=== PATIENT | female | born 2000 | race Two or more races ===

== ENCOUNTER 2025-01-23 18:26 | Emergency (ER) | payer MEDICAID, SELFPAY ==
[2025-01-23 18:52] VITALS: BMI 18.1
[2025-01-23 18:55] VITALS: BP 103/69; PULSE 79; RESP 17; TEMP 36.6; O2SAT 97
--- NOTE | 2025-01-23 19:03 | XR_ITS ---
Examination: CT brain head without contrast. 2-D sagittal coronal reconstructions Date and time of exam:January 23, 2025 1929 hours INDICATIONS: Syncopal episode today, patient fell today with images of the head, head pain CTDI: vol (mGy):29 DLP: (mGycm):549 Technique: Multiple CT axial sections of the brain have been obtained, 5 mm slice thickness. Contrast has not been administered. 2-D sagittal, coronal reconstructions have been obtained Low dose protocols were performed. One or more of the following dose reduction techniques were used; automated exposure control, adjustment of the mA and/or KV according to patient size, use of iterative reconstruction technique. Findings: No significant ventricular enlargement. Intra-axial or extra-axial hemorrhage density is not seen. No mass effect or midline shift Basal cisterns are not remarkable. Fourth ventricle is midline. Cranial vault intact. Impression: Negative for acute hemorrhage, mass effect or midline shift Please see the CT maxillofacial report
--- NOTE | 2025-01-23 19:03 | XR_ITS ---
Examination: PA lateral chest 2 views TECHNIQUE: Upright PA lateral chest 2 views Date and time: January 23, 2025 1917 hours INDICATION: Chest pain. Today FINDINGS: Normal heart size Lungs are clear. Moderate thoracic dextroscoliosis IMPRESSION: No active disease
--- NOTE | 2025-01-23 19:03 | EKG_ITS ---
[facility] Test Date: 2025-01-23 Pat Name: MIGNON OLMEDO Department: Room: - Gender: Female Under Trimmer: : 2000 Requested By: Saurabh Martinez Order Number: [id number] Reading MD: Saurabh Martinez Measurements Intervals [place] Rate: 70 P: 38 MT: 135 QRS: 68 QRSD: 84 T: 58 QT: 357 QTc: 386 Interpretive Statements SINUS RHYTHM POSSIBLE RIGHT VENTRICULAR CONDUCTION DELAY [RSR (QR) IN V1/V2] No previous ECG available for comparison /[id number]/[email or web address]/[id number]
--- NOTE | 2025-01-23 19:07 | XR_ITS ---
Examination: Transvaginal ultrasound of the pelvis, complete Technique: Transvaginal sonographic images pelvis performed using banks scale imaging Exam date and time: January 23, 2025 1039 hours INDICATIONS: Pelvic pain beginning several months ago FINDINGS: Uterus 5.3 cm endometrial stripe 1.0 cm No uterine mass or intrauterine gestation Right ovary 3.0 similar to flow Left ovary 2.8 cm arterial flow, fluid present in the left adnexal region and cul-de-sac. IMPRESSION: Mild fluid present in the left adnexal region and cul-de-sac, consider recent rupture of a left ovarian cyst, pelvic inflammatory disease, clinical correlation is advised
--- NOTE | 2025-01-23 19:07 | PD.EDSYNC ---
ED Syncope RME/HPI General Chief Complaint: Syncope / Near Syncope Stated Complaint: Syncope yesterday, hit nose, cough Time Seen by Provider: 01/23/25 19:03 Arrival date/time: 01/23/25 18:26 24F with no significant PMH presents to ED with syncope after some sharp pelvic pain. Patient fell and hit her nose. Patient also has a cough and was diagnosed with strep and is on penicillin. Patient has never had a work-up for her syncope, but she's fainted about 5 times in her life. It's usually associated with her pelvic pain. Last time this happened, she was told it was due to a ruptured pelvic cyst. Limitations: no limitations Related Data Previous Rx's ?Medication ?Instructions ?Recorded sulfamethoxazole 400 1 tab PO BID #36 tabs 06/22/20 mg-trimethoprim 80 mg tablet Allergies Allergy/AdvReac Type Severity Reaction Status Date / Time No Known Allergies Allergy Verified 01/23/25 18:32 Review of Systems Review of Systems Systems Reviewed: All systems reviewed, normal except as documented Constitutional Constitutional: Reports system reviewed and no additional complaints, except as documented, Denies fever(s) and Denies headache(s) ENT Ears, Nose, Mouth, and Throat: Reports as per HPI, Denies disequilibrium, Denies headache(s) and Reports other (nose pain) Cardiovascular Cardiovascular: Reports system reviewed and no additional complaints, except as documented, Denies chest pain, Denies dyspnea and Reports syncope Respiratory Respiratory: Reports system reviewed and no additional complaints, except as documented, Reports as per HPI, Reports cough and Denies dyspnea Gastrointestinal Gastrointestinal: Reports system reviewed and no additional complaints, except as documented, Denies abdominal pain, Denies nausea and Denies vomiting Neurologic Neurologic: Reports system reviewed and no additional complaints, except as documented, Reports as per HPI, Denies confusion, Denies disequilibrium, Denies headache(s) and Reports syncope Psychiatric Psychiatric: Denies confusion Past Medical History Past Medical History CARDIAC: Negative Cardiac Disorders or Congestive Heart Failure RESPIRATORY: Negative Chronic Obstructive Pulmonary Disease (COPD) or Asthma GENITOURINARY: Negative Renal Disease ENDOCRINE: Negative Diabetes Mellitus Type 1 or Diabetes Mellitus Type 2 HEMATOLOGIC: Negative Sickle Cell Disease Social History SMOKING STATUS: Never smoker SUBSTANCE USE: does not use ED Exam General Limitations: Present no limitations General appearance: Present alert and in no apparent distress Head Head exam: Present atraumatic Eye Eye exam: Present normal appearance, PERRL and EOMI ENT ENT exam: Present normal exam, normal oropharynx and mucous membranes moist Neck Neck exam: Present normal inspection, full ROM and trachea midline Chest Chest inspection: Present normal inspection and symmetric chest wall rise Respiratory Respiratory exam: Present normal lung sounds bilaterally Cardiovascular Cardiovascular exam: Present regular rate, normal rhythm and normal heart sounds Abdominal Exam Abdominal exam: Present soft and normal bowel sounds Extremities Exam Extremities exam: Present normal inspection and full ROM Back Exam Back exam: Present normal inspection and full ROM Neurological Exam Neurological exam: Present alert, oriented X3 and CN II-XII intact Psychiatric Psychiatric exam: Present normal affect and normal mood Skin Skin exam: Present warm, dry, intact and normal color Course Quality Measures none Orders Category Date Time Status EKG (ED ONLY) *Do not use* NOW Care 01/23/25 19:[address] facial bones wo con Stat Exams 01/23/25 19:[address] head/brain wo con Stat Exams 01/23/25 19:03 Completed EKG (ED Only) Stat Exams 01/23/25 19:03 Draft US transvaginal Stat Exams 01/23/25 19:07 Completed XR chest 2V Stat Exams 01/23/25 19:03 Completed CBC Stat Lab 01/23/25 19:10 Completed Comprehensive Metabolic Panel Stat Lab 01/23/25 19:10 Completed D-Dimer Stat Lab 01/23/25 19:10 Completed Drug Screen,Urine Stat Lab 01/23/25 21:06 Completed HCG Qualitative,Urine Stat Lab 01/23/25 21:06 Completed Troponin I Stat Lab 01/23/25 19:10 Completed Urinalysis Stat Lab 01/23/25 21:06 Completed Vital Signs Vital signs: Vital Signs Temperature 97.8 F 01/23/25 18:55 Pulse Rate 79 01/23/25 18:55 Respiratory Rate 17 01/23/25 18:55 Blood Pressure 103/69 01/23/25 18:55 Pulse Oximetry (%) 97 01/23/25 18:55 Oxygen Delivery Method Room Air 01/23/25 18:55 O2 at 97% on RA and WNLs Syncope MDM Narrative MDM Narrative:: 24F with no significant PMH presents to ED with syncope after some sharp pelvic pain. Patient fell and hit her nose. Patient also has a cough and was diagnosed with strep and is on penicillin. Patient has never had a work-up for her syncope, but she's fainted about 5 times in her life. It's usually associated with her pelvic pain. Last time this happened, she was told it was due to a ruptured pelvic cyst. Patient does not currently have ab/pelvic pain and she denies N/V, dysuria, diarrhea, and vaginal bleeding. Physical exam reveals normal pupil response and EOM. Nose bridge bruising, swelling, and tenderness. No septal hematoma. Speech normal. Gait normal. Clear lungs and normal WOB. Patient is afebrile, calm, and alert. US some FF consistent with ruptured pelvic cyst or PID, but patient denies STD possibility. Pain is also intermittent not constant. CT reveals nasal fx. CXR normal. EKG is NSR. D-dimer, trop normal. CBC/CMP unremarkable. HCG/tox screen neg. UA clean. 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 Patient data External records reviewed:: [facility] previous records Clinical information provided by:: patient Social determinants that could affect healthcare access:: none Patient has the following chronic illnesses:: none How is presenting disease/condition affected by chronic disease/condition?: no chronic disease Evaluation data The following diagnostics were reviewed and interpreted by me:: lab results, radiology exam(s) and EKG tracing(s) Lab and/or radiology exams considered but not ordered:: ordered Interpretation Summary: above Medications / Prescriptions Medications or Prescriptions considered but not ordered:: not ordered Medication administrations:: n/a Consultations Consultation(s) initiated? (list below): No Diagnosis Syncope Differential Diagnosis: syncope due to orthostatic hypotension, vasovagal syncope, complete atrioventricular block, subarachnoid hemorrhage, pulmonary embolism, dehydration and other (URI, pelvic mass, syncope, nasal fx, ovarian cyst rupture) Most likely diagnosis given after review of the tests above:: syncope, nasal fx, ovarian cyst rupture Admission Indicated Admission indicated?: not indicated Admission Request Was there a request for admission?: No Disposition Plan Disposition Plan: Discharge Discharge Attestation Discharge Attestation: The patient and all family members were given an opportunity to ask questions and understood the discharge instructions. Discharge instructions specifically effects, indications for sooner follow up or return to the emergency department, and the expected course of current diagnosis. Patient condition: Stable Discharge Plan Plan Patient Disposition: HOME (Self Care) Discharge Disposition comment: Stable Prescriptions/Referrals Prescriptions/Med Rec: No Action sulfamethoxazole-trimethoprim 400-80 mg tablet 1 tab PO BID Qty: 36 0RF Referrals: No Primary/Family,Physician [Primary Care Provider] - In 1 week Problem List Clinical Impression: Ovarian cyst rupture, Closed fracture nasal bone, Syncope Patient/Caregiver Discharge Instructions Education Materials: ED Nose Fracture, with X-Ray, ED Ovarian Cyst, ED Fainting, Vagal Reaction Additional Instructions: Please follow-up with PCP /OBYGN within 24-48 hours and return immediately if symptoms worsen. Can see plastics or ENT if you don't like how nose heals. Print Language: Croatian Stand Alone Forms: Patient Portal Info Letter PA/HELICOPTER PILOT INSTRUCTOR Supervising Physician PA/HELICOPTER PILOT INSTRUCTOR Supervising Physician: Dr. Gavin
--- NOTE | 2025-01-23 19:10 | XR_ITS ---
Examination: CT maxillofacial, without intravenous contrast. 2-D sagittal reconstructions. 3-D reconstructions. Date and time of exam:January 23, 2025 1929 hours INDICATIONS: Patient fell today with injury to the head, face, face head pain CTDI: vol (mGy):29 DLP: (mGycm):549 Technique: Multiple axial images of maxillofacial region, 3.0 mm slice thickness. 2-D sagittal and coronal reconstructions. 3-D reconstructions. Low dose protocols were performed. One or more of the following dose reduction techniques were used; automated exposure control, adjustment of the mA and/or KV according to patient size, use of iterative reconstruction technique. Findings: Bilateral mildly displaced nasal bone fractures Orbital rims appear intact Frontal bone is intact No depression zygomatic arches Maxilla in the mandible is intact IMPRESSION: Acute mildly displaced bilateral nasal bone fractures.
[2025-01-23 19:25] LABS: Basophils % (Auto) 1 % (0-2.5); Eosinophils # (Auto) 0.1 Thou/mm3 (0.0-0.5); Eosinophils % (Auto) 2 % (0-10); Hematocrit 40.4 % (36.0-46.0); Hemoglobin 13.2 g/dL (12.0-16.0); Immature Granulocytes % (Auto) 0 % (0-0); Immature Granulocytes Auto 0.02 Thou/mm3 (0.00-0.00); Lymphocytes # (Auto) 2.3 Thou/mm3 (1.0-4.8); Lymphocytes % (Auto) 39 % (10-50); Mean Corpuscular HGB Conc 32.7 g/dl (31.0-37.0); Mean Corpuscular Hemoglobin 27.4 pg (25.0-35.0); Mean Corpuscular Volume 84 fL (80-100); Monocytes # (Auto) 1.1 Thou/mm3 (0.0-0.8); Monocytes % (Auto) 18 % (0-12); Neutrophils # (Auto) 2.4 Thou/mm3 (1.8-7.7); Neutrophils % (Auto) 41 % (37-80); Nucleated Red Blood Cell % 0 /100 WBC (0); Platelet Count 207 Thou/mm3 (140-440); Red Blood Count 4.81 Miln/mm3 (4.00-5.20); White Blood Count 5.9 Thou/mm3 (3.6-11.0)
[2025-01-23 19:44] LABS: D-Dimer < 250 ng/mL (<600)
[2025-01-23 19:57] LABS: Alanine Aminotransferase 9 U/L (10-49); Albumin, Serum 4.3 gm/dL (3.5-5.0); Albumin/Globulin Ratio 1.4 (1.2-2.2); Alkaline Phosphatase 66 U/L (46-116); Anion Gap 5 (7-16); Aspartate Amino Transferase 17 U/L (0-34); BUN/Creatinine Ratio 9 Ratio (12-20); Bilirubin,Total 0.2 mg/dL (0.3-1.2); Blood Urea Nitrogen 7 mg/dL (9-23); Calcium 8.9 mg/dL (8.3-10.6); Calcium (Corrected) 8.9 mg/dL (8.5-10.1); Carbon Dioxide 23.7 mMol/L (20.0-31.0); Chloride 108 mMol/L (98-107); Creatinine (Component) 0.8 mg/dL (0.6-1.3); Estimated Creatinine Clearance 84.8 mL/min (>60); Glucose 83 mg/dL (74-106); Osmolality,Calculated 270 (275-295); Potassium 3.8 mMol/L (3.4-5.1); Sodium 137 mMol/L (136-145); Total Protein 7.3 gm/dL (5.7-8.2); Troponin I < 0.002 ng/mL (0.0-0.045); eGFR > 60 See Note
[2025-01-23 22:01] LABS: Collection Type, Urine Clean Catch
[2025-01-23 22:23] LABS: Bacteria,Urine 1+; Bilirubin,Urine Negative (Negative); Blood,Urine Negative (Negative); Clarity,Urine Turbid (Clear/Hazy); Color,Urine Colorless (Lt Yel-Yel); Glucose, Urine Negative (Negative); Ketones,Urine Negative (Negative); Leukocyte Esterase,Urine Positive (Negative); Nitrite,Urine Negative (Negative); PH,Urine 6.5 (5.0-7.0); Protein,Urine Negative (Neg - Trace); RBC,Urine 2 /hpf (0-3); Specific Gravity,Urine 1.008 (1.001-1.035); Squamous Epithelial Cell,Urine 17 /hpf (0-5); Urobilinogen,Urine Negative mg/dL (0.0-1.0); WBC,Urine 26 /hpf (0-5)
[2025-01-23 22:25] LABS: HCG Qualitative,Urine Negative
[2025-01-23 22:37] LABS: Amphetamine/Methamp Scrn,U Negative (Negative); Barbiturate Screen,Urine Negative (Negative); Benzodiazepines Screen,Urine Negative (Negative); Benzoylecgonine Screen, Ur Negative (Negative); Fentanyl Screen,Urine Negative (Negative); Opiate Screen,Urine Negative (Negative); THC Screen,Urine Negative (Negative)
== END 2025-01-24 | disposition home or self-care (01) ==
PROVIDERS: Physician Assistant; Emergency Provider Emergency Medicine
DX: S02.2XXA Fracture of nasal bones, initial encounter for closed fracture (principal); R55 Syncope and collapse; N83.202 Unspecified ovarian cyst, left side; W19.XXXA Unspecified fall, initial encounter; R07.9 Chest pain, unspecified; R94.31 Abnormal electrocardiogram [ECG] [EKG]
CPT/HCPCS: 36415; 70450; 70486; 71046; 76830; 80053; 80307; 81001; 81025; 84484; 85025; 85379; 93005; 99284